=== PATIENT | male | born 1980 | race Two or more races ===

== ENCOUNTER 2021-02-01 14:47 | Emergency (ER) | payer BC ==
[2021-02-01 14:57] VITALS: BP 145/93; PULSE 87; TEMP 98.9; BMI 35.4
[2021-02-01 16:38] LABS: BASO % 0.7 % (0-2.0); EOS % 1.2 % (0-4.5); HEMATOCRIT 47.3 % (35.4-49); HEMOGLOBIN 16.2 GM/dL (11.7-16.9); LYMPH % 18.7 % (8-40); MCH 31.4 pg (25.7-33.7); MCHC 34.2 g/dl (32.0-35.9); MEAN CELL VOLUME 91.8 fl (80-96); MEAN PLT VOLUME 10.5 fl (7.5-11.1); MONO % 6.4 % (3.8-10.2); PLATELET COUNT 175 10^3/uL (134-434); RBC 5.16 M/mm3 (4.00-5.60); RDW 12.9 % (11.9-15.9); WHITE BLOOD COUNT 9.9 K/mm3 (4.0-10.0)
[2021-02-01 16:51] LABS: CHLORIDE 107 mmol/L (98-107); SODIUM 139 mmol/L (136-145)
[2021-02-01 16:52] LABS: CALCIUM 8.9 mg/dL (8.5-10.1)
[2021-02-01 16:53] LABS: ALBUMIN 4.1 g/dl (3.4-5.0); ANION GAP 10 MMOL/L (8-16); BLOOD UREA NITROGEN 23.3 mg/dL (7-18); CO2 23 mmol/L (21-32)
[2021-02-01 16:55] LABS: GLUCOSE,RANDOM 88 mg/dL (74-106)
[2021-02-01 16:56] LABS: CREATININE 1.2 mg/dL (0.55-1.3); SGOT/AST 30 U/L (15-37); SGPT/ALT 42 U/L (13-61)
[2021-02-01 16:58] LABS: BILIRUBIN,TOTAL 0.8 mg/dL (0.2-1); TOT PROT 7.6 g/dl (6.4-8.2)
[2021-02-01 16:59] LABS: ALK PHOS 61 U/L (45-117)
== END 2021-02-01 17:50 | disposition home or self-care (01) ==
LOC: JER 14:47
DX: R07.9 Chest pain, unspecified (principal)
CPT/HCPCS: 36415; 71046-TC-FY; 80053; 82550; 82553; 84484; 85025; 93005; 93010; 99284-25